=== PATIENT | male | born 1975 | race Caucasian/White ===

== ENCOUNTER 2017-11-29 23:58 | Emergency (ER) | payer OTHER ==
[2017-11-30 03:41] VITALS: BP 132/68
== END 2017-11-30 03:41 | disposition home or self-care (01) ==
LOC: ED 23:58
PROC: 0HQEXZZ Repair Left Lower Arm Skin, External Approach (ICD-10-PCS; principal; 2017-11-29)
DX: S61.512A Laceration without foreign body of left wrist, initial encounter (principal); W45.8XXA Other foreign body or object entering through skin, initial encounter; Y92.9 Unspecified place or not applicable

== ENCOUNTER 2019-11-12 20:48 | Emergency (ER) | payer OTHER ==
[~2019-11-12] VITALS: Ht 165.1 cm; Wt 115.4 kg
[2019-11-12 22:11] VITALS: BP 159/80
== END 2019-11-12 22:11 | disposition home or self-care (01) ==
LOC: ED 20:48
DX: S61.012A Laceration without foreign body of left thumb without damage to nail, initial encounter (principal); W26.8XXA Contact with other sharp object(s), not elsewhere classified, initial encounter; Y93.89 Activity, other specified; Y92.89 Other specified places as the place of occurrence of the external cause; Y99.0 Civilian activity done for income or pay
CPT/HCPCS: 90715; J2001